=== PATIENT | female | born 1970 | race Two or more races ===

== ENCOUNTER → 2023-11-21 09:27 | Outpatient (REF) | payer BC, SELFPAY | LOC: REG 09:27 | PROVIDERS: ATTENDING PHYSICIAN Internal Medicine Hematology & Oncology; FAMILY PHYSICIAN Internal Medicine | DX: D48.62 Neoplasm of uncertain behavior of left breast (principal); J91.0 Malignant pleural effusion; C78.00 Secondary malignant neoplasm of unspecified lung | CPT/HCPCS: 36415; 86850; 86900; 86901 ==

== ENCOUNTER 2023-11-23 09:57 | Outpatient (RCR) | payer BC, SELFPAY ==
[2023-11-23 11:44] VITALS: BP 113/70
[2023-11-23 12:04] VITALS: BP 106/75
[2023-11-23 13:41] VITALS: BP 109/80
== END 2023-12-01 23:59 | disposition home or self-care (01) ==
LOC: OID 09:57
PROVIDERS: ATTENDING PHYSICIAN Internal Medicine Hematology & Oncology; FAMILY PHYSICIAN Internal Medicine
DX: C78.00 Secondary malignant neoplasm of unspecified lung (principal); D63.0 Anemia in neoplastic disease; K12.1 Other forms of stomatitis
CPT/HCPCS: 36415; 36430; 86850; 86900; 86901; 86920; P9016

== ENCOUNTER → 2024-01-06 11:42 | Outpatient (REF) | payer BC, SELFPAY ==
[2024-01-06 13:11] LABS: % Basophils 0.3 % (0-2); % Eosinophils 0.3 % (0-6); % Immature Granulocytes 0.9 % (0-0.5); % Lymphocytes 4.2 % (20.5-51.1); % Neutrophils 88.3 % (42.2-75.2); Absolute Immature Granulocytes 0.1 10^3/uL (0-0.05); Absolute Lymphocytes 0.6 10^3/uL (1.2-3.4); Absolute Monocytes 0.9 10^3/uL (0.1-0.6); Absolute Neutrophils 12.6 10^3/uL (1.4-6.5); Hematocrit 31.4 % (37.0-47.0); Hemoglobin 9.6 g/dL (12.0-16.0); Mean Corp Hgb Conc. 30.6 g/dL (33.0-37.0); Mean Corpuscular Hgb 29.4 pg (27.0-31.0); Mean Corpuscular Volume 96.3 fL (81.0-99.0); Mean Platelet Volume 8.5 fL (7.4-10.4); Nucleated Red Blood Cells % 0 %; Platelet Count 520 10^3/uL (130-400); Red Blood Cell Count 3.26 10^6/uL (4.20-5.40); Red Cell Dist. Width 17.4 % (11.5-14.5); White Blood Cell Count 14.2 10^3/uL (4.8-10.8)
[2024-01-06 13:34] LABS: ALT (SGPT) 12 U/L (0-35); AST (SGOT) 27 U/L (14-36); Albumin 2.9 g/dl (3.5-5.0); Alkaline Phosphatase 125 U/L (38-126); Blood Urea Nitrogen 11 mg/dl (7-17); Calcium 8.8 mg/dl (8.4-10.2); Carbon Dioxide 25 mmol/L (22-30); Chloride 101 mmol/L (98-107); Glucose 107 mg/dl (70-99); Potassium 4.4 mmol/L (3.5-5.1); Sodium 135 mmol/L (135-145); Total Bilirubin 0.5 mg/dl (0.2-1.3); eGFR > 60.00
== END ==
LOC: REG 11:42
PROVIDERS: ATTENDING PHYSICIAN Nurse Practitioner Adult Health; FAMILY PHYSICIAN Internal Medicine
DX: D48.62 Neoplasm of uncertain behavior of left breast (principal); J91.0 Malignant pleural effusion; C78.00 Secondary malignant neoplasm of unspecified lung; R05.1 Acute cough
CPT/HCPCS: 36415; 80053; 85025; 86850; 86900; 86901